=== PATIENT | female | born 1980 | race Caucasian/White ===

== ENCOUNTER → 2016-09-25 | Outpatient (CLI) | payer MEDICAID ==
[~2016-09-25] MED LIST: FLINT2 CHEW; IBUP-232 PO; SENN1TAB PO
== END ==
LOC: HPND 09:07
PROVIDERS: ATTEND Obstetrics & Gynecology Obstetrics
DX: O34.12 Maternal care for benign tumor of corpus uteri, second trimester (principal); O09.522 Supervision of elderly multigravida, second trimester; Z36 Encounter for antenatal screening of mother; Z3A.00 Weeks of gestation of pregnancy not specified
CPT/HCPCS: 76816

== ENCOUNTER → 2016-10-13 | Outpatient (CLI) | payer MEDICAID | LOC: HPND 10:59 | PROVIDERS: ATTEND Obstetrics & Gynecology | DX: O09.522 Supervision of elderly multigravida, second trimester (principal); O35.8XX0 Maternal care for other (suspected) fetal abnormality and damage, not applicable or unspecified; O34.12 Maternal care for benign tumor of corpus uteri, second trimester | CPT/HCPCS: 76825; 76827; 93325 ==

== ENCOUNTER → 2016-10-20 | Outpatient (CLI) | payer MEDICAID | LOC: HPND 08:36 | PROVIDERS: ATTEND Obstetrics & Gynecology | DX: O35.8XX2 Maternal care for other (suspected) fetal abnormality and damage, fetus 2 (principal); Z3A.27 27 weeks gestation of pregnancy | CPT/HCPCS: 76816 ==

== ENCOUNTER → 2016-10-27 | Outpatient (CLI) | payer MEDICAID | LOC: HPND 08:33 | PROVIDERS: ATTEND Obstetrics & Gynecology | DX: O35.8XX0 Maternal care for other (suspected) fetal abnormality and damage, not applicable or unspecified (principal); O09.523 Supervision of elderly multigravida, third trimester; Z3A.28 28 weeks gestation of pregnancy | CPT/HCPCS: 76815 ==

== ENCOUNTER → 2016-11-10 | Outpatient (CLI) | payer MEDICAID | LOC: HPND 08:06 | PROVIDERS: ATTEND Obstetrics & Gynecology | DX: O35.8XX0 Maternal care for other (suspected) fetal abnormality and damage, not applicable or unspecified (principal) | CPT/HCPCS: 76816 ==

== ENCOUNTER → 2016-11-24 | Outpatient (CLI) | payer MEDICAID | LOC: HPND 08:27 | PROVIDERS: ATTEND Obstetrics & Gynecology | DX: O35.1XX0 Maternal care for (suspected) chromosomal abnormality in fetus, not applicable or unspecified (principal) | CPT/HCPCS: 76815 ==

== ENCOUNTER → 2016-12-08 | Outpatient (CLI) | payer MEDICAID | LOC: HPND 08:24 | PROVIDERS: ATTEND Obstetrics & Gynecology | DX: O35.8XX0 Maternal care for other (suspected) fetal abnormality and damage, not applicable or unspecified (principal); O09.523 Supervision of elderly multigravida, third trimester; O34.13 Maternal care for benign tumor of corpus uteri, third trimester; Z3A.34 34 weeks gestation of pregnancy | CPT/HCPCS: 76816 ==

== ENCOUNTER → 2016-12-30 | Outpatient (CLI) | payer MEDICAID | LOC: HPND 08:39 | PROVIDERS: ATTEND Obstetrics & Gynecology | DX: O35.1XX0 Maternal care for (suspected) chromosomal abnormality in fetus, not applicable or unspecified (principal) | CPT/HCPCS: 76816 ==

== ENCOUNTER 2016-12-31 22:36 | Emergency (ER) | payer MEDICAID ==
[~2016-12-31 22:36] MED LIST changes: -IBUP-232 PO; -SENN1TAB PO
--- NOTE | 2016-12-31 23:43 | PD ---
HPI Travel History International Travel<30 Days: No Contact w/Intl Traveler<30Days: No Known Affected Area: No History of Present Illness HPI This patient is a 36-year-old 6 para 5005 EDC is January 13, 2017 presently at 38 weeks who thinks that her water broke at approximately 10 PM with subsequent on set of irregular contractions since 4 PM her group B strep is positive.Amnisure is negative x 2 care with [facility] Course is significant for left sided lung mass Advanced maternal age Grand multiparity History Past Medical History Narrative Medical Patient has no known drug allergies no major medical problems Obstetric History Obstetric History Normal spontaneous vaginal delivery 5 Past Surgical History Surgical History: No Previous Surgery Family History Family History: Negative Social History Alcohol Use: No Tobacco Use: No Substance Abuse: No Allergies-Medications (Allergen,Severity, Reaction): Coded Allergies: No Known Allergies (Unverified , 12/23/16) Home Meds Reported Medications Yehp-Gxulcgrk-Hejnheja (Flintstones Complete)60 Mg Tab1 Tab CHEW DAILY #30 TAB Ref 0 08/04/16 Review of Systems Gastrointestinal: Abdominal Pain (irregular contractions) Genitourinary: Other (possible rupture of membranes) Physical Exam Narrative GENERAL: Well-nourished, well-developed patient. Alert oriented 3 and cooperative in no acute distress SKIN: Warm and dry. HEAD: Normocephalic and atraumatic. CARDIOVASCULAR: Regular rate and rhythm without murmurs, gallops, or rubs. RESPIRATORY: Breath sounds equal bilaterally. No accessory muscle use ABDOMEN/GI: Abdomen soft, non-tender, bowel sounds present, no rebound, no guarding gravid consistent with stated gestational age occasional palpable contractions Gravid to [-] weeks size term size Fundal Height: [-] GENITOURINARY: External Genitalia: intact and normal in appearance BUS glands: [-] Cervix: [-] Posterior soft Dilatation: [-] 2 cm Effacement: [-] 50% Station: [-] -2 Presentation: [-] Vertex Membranes: [intact speculum exam shows no fluid in the vault no fluid from the os amnisure is negative 2 Uterine Contractions: [-] Irregular occasional FHT's: Category: [-] 1 Baseline: [-] 140 Reactive: [-] + Variability: [-] Moderate Decels: [-]0 no decelerations with contractions EXTREMITIES: No cyanosis or edema. 2+ reflexes NEUROLOGICAL: Awake and alert. Motor and sensory grossly within normal limits. Five out of 5 muscle strength in all muscle groups. Normal speech. Data Data Vital Signs Reviewed: Yes (121/44 temperature 98.3 pulse is 81) Labs Bedside ultrasound is done Amniotic fluid index is 18.30 Positive flexion Positive tone Positive breathing With a reactive tracing 10 out of 10 biophysical profile MDM Medical Record Reviewed: Yes Interpretation(s) 36-year-old at 38 weeks Clinical evidence of ruptured membrane Not in labor Russ Wall Advanced maternal age Grand multiparity Plan After external monitoring bedside ultrasound with a reactive tracing We'll discharge patient home kick counts She signs of labor and rupture of membranes reviewed She is to keep her next appointment with careful appointment Diagnosis Diagnosis: Primary Impression: 38 weeks gestation of Additional Impressions: Suspected problem with amniotic cavity and membrane not found Grand multiparity Advanced maternal age in multigravida Qualified Code: O09.523 - Advanced maternal age in multigravida, third trimester Russ Wall' contraction Disposition: 01 DISCHARGE HOME Condition: Stable Dacia Holder MD Dec 31, 2016 23:42
== END 2016-12-31 23:47 | disposition home or self-care (01) ==
LOC: HOBED 22:36
DX: O47.1 False labor at or after 37 completed weeks of gestation (principal); O09.523 Supervision of elderly multigravida, third trimester; Z3A.38 38 weeks gestation of pregnancy
CPT/HCPCS: 59025; 76815; 84112

== ENCOUNTER 2017-01-03 01:50 | Inpatient (IN) | payer MEDICAID ==
[2017-01-03] VITALS (25 sets, daily range): BP systolic 104–132; BP diastolic 56–70; PULSE 67–107; RESP 16–18; TEMP 97.7–98.5
[~2017-01-03] VITALS: Ht 154.9 cm; Wt 68.5 kg
[2017-01-03] MEDS: LACTATED RINGER'S 1000 ML INJ 1,000 ML IV SCH ×2 (02:14→06:34)
[2017-01-03] MEDS ORDERED: LACTATED RINGER'S 1000 ML INJ 1,000 ML IV PRN (02:14)
[2017-01-03] MEDS ORDERED: OXYTOCIN 30 UNITS-500ML PREMIX 500 ML IV ONE (02:15)
[2017-01-03] MEDS ORDERED: LIDOCAINE HCL 1% 50 ML VIAL I-DERMAL PRN (02:15)
[2017-01-03] MEDS ORDERED: LIDOCAINE HCL 1% 50 ML VIAL INFIL PRN (02:15)
[2017-01-03] MEDS ORDERED: PENICILLIN G POTASSIUM INJ 5,000,000 UNITS in SODIUM CHLORIDE 0.9% INJ 100 ML IV ONE (02:15)
[2017-01-03] MEDS ORDERED: SODIUM CHLORID 0.9% 500 ML INJ 500 ML IV PRN (02:15)
[2017-01-03] MEDS ORDERED: CITRIC ACID-SODIUM CITRATE LIQ 30 ML UDC PO SCH (02:15)
[2017-01-03] MEDS ORDERED: MINERAL OIL 10 ML VIAL TOPICAL PRN (02:15)
[2017-01-03] MEDS ORDERED: SODIUM CHLOR 0.9% 1000 ML INJ 1,000 ML IV PRN (02:34)
--- NOTE | 2017-01-03 02:38 | HHI.HP ---
History & Physical H&P Patient Name: Janelle Louis Unit Number: [id number] Date of : 1980 Patient Status: Registered Emergency Room Attending Doctor: Dacia Holder MD HPI HPI Chief Complaint concern for ROM, contractions Date Seen: Jan 03, 2017 Travel History International Travel<30 Days: No Contact w/Intl Traveler<30Days: No History of Present Illness HPI Ms. Louis is a 36-year-old 005 patient of [facility] at 38 3/7 weeks ( EDC 01/13/2017) who presents with concern for rupture of membranes as well as contractions. Patient states that she was eating dinner earlier tonight when she thought that she may have ruptured her membranes; patient states that she felt more fluid past from her vagina while driving back from dinner at approximately midnight. Patient also reports slight red/bloody tinged fluid. Patient reports increasing pain with contraction; contractions irregular. Patient does not report other symptoms at this time; no headaches, shortness of breath, chest pain, vomiting, or dysuria. Patient last seen 12/31 for possible ROM but Amnisure negative; cervical check at that time was 2/50%/-2, discharged home after reactive tracing. Per review of records, patient GBS positive. Patient denies complications. Early ultrasounds demonstrated CTA and with recommended follow-up after ; subsequent ultrasounds in 12/2016 did not show this. Review of labs did not reveal abnormalities. Para: 5 : 6 History (Limited) History Past Medical History Medical History: Denies Significant Hx Obstetric History Obstetric History 005 Largest weight 8 lbs. 12 oz. Past Surgical History Surgical History: No Previous Surgery Family History Family History: Negative Social History Alcohol Use: No Tobacco Use: No Substance Abuse: No Allergies-Medications Allergies-Medications (Allergen,Severity, Reaction): Coded Allergies: No Known Allergies (Unverified , 12/23/16) Home Meds Reported Medications Sdev-Hncjuflj-Rekdompj (Flintstones Complete)60 Mg Tab1 Tab CHEW DAILY #30 TAB Ref 0 08/04/16 ROS Review of Systems General / Constitutional: No: Fever, Chills Eyes: No: Blurred Vision HENT: No: Headaches Cardiovascular: No: Chest Pain or Discomfort Respiratory: No: Short of Breath Gastrointestinal: No: Nausea, Vomiting Genitourinary: Other (possible ROM) Physical Exam Physical Exam BP 132/69 HR 107 Narrative GENERAL: Well-nourished, well-developed patient. SKIN: Warm and dry. HEAD: Normocephalic and atraumatic. EYES: No scleral icterus. No injection or drainage. ENT: No nasal drainage noted. Mucous membranes pink. CARDIOVASCULAR: Regular rate and rhythm without murmurs, gallops, or rubs. RESPIRATORY: CTAB, normal rate ABDOMEN/GI: Abdomen soft, non-tender, bowel sounds present, no rebound, no guarding Gravid EXTREMITIES: No cyanosis or edema. NEUROLOGICAL: Awake and alert. Motor and sensory function grossly within normal limits. GENITOURINARY: Performed by Dr. Whitman/Dr. Alex External Genitalia: intact and normal in appearance. Clear fluid pooling in posterior fornix. No evidence of vaginal blood Cervix: Dilatation: 4 Effacement: 50% Station: -2 Presentation: V Membranes: Ruptured Uterine Contractions: Irregular FHT's: Category: 1 Baseline: 140 Reactive: Y Variability: Mod Decels: None Data Data Data Orders Ob (2e) Additional Admit Info (01/03/17 02:12) Admit To Inpatient (01/03/17 ) Vital Signs (Adult) .Per protocol (01/03/17 02:14) Heart (01/03/17 02:14) Amnioinfusion (01/03/17 02:14) Urinary Catheter Management .ONCE (01/03/17 02:14) Lactated Ringer's 1000 Ml Inj (Lr 1000 M (01/03/17 02:14) Lactated Ringer's 1000 Ml Inj (Lr 1000 M (01/03/17 02:14) Sodium Chlorid 0.9% 500 Ml Inj (Ns 500 M (01/03/17 02:15) Sodium Chlor 0.9% 1000 Ml Inj (Ns 1000 M (01/03/17 02:34) Lidocaine 1% Inj (50 Ml) (Xylocaine 1% I (01/03/17 02:15) Citric Acid-Sodium Citrate Liq (Bicitra (01/03/17 02:15) Fentanyl Inj (Fentanyl Inj) (01/03/17 02:15) Fentanyl Inj (Fentanyl Inj) (01/03/17 02:15) Penicillin G Potassium Inj (Pfizerpen-G (01/03/17 02:15) Penicillin G Potassium Inj (Pfizerpen-G (01/03/17 06:15) Complete Blood Count With Diff (01/03/17 02:14) Hold Clot (01/03/17 02:14) Abo/Rh Blood Type (01/03/17 02:14) Urinalysis - C+S If Indicated (01/03/17 02:14) Resp Oxygen Non Rebreathe Mask (01/03/17 ) ^ Epidural / Intrathecal Infus (01/03/17 02:14) Oxytocin 30 Units-500ml Premix (Pitocin (01/03/17 02:15) Lidocaine 1% Inj (50 Ml) (Xylocaine 1% I (01/03/17 02:15) Light Mineral Oil (Muri-Lube Oil) (01/03/17 02:15) Inpatient Certification (01/03/17 ) MDM MDM Medical Record Reviewed: Yes Narrative Course / MDM 36-year-old 005 patient of [facility] at 38 3/7 weeks (EDC 01/13/2017) -Concern for ROM -Cat 1 rhythm -Cervix 4/50%/-2 -Uterine irritability on CTG -GBS negative Plan: -Continue to monitor EFM -Will check Amnisure Interval: Amnisure + Plan: -We'll plan to admit patient for labor -Start IV fluids -PCN for GBS prophylaxis -We'll obtain CBC, hold clot, urinalysis -Epidural if desired (Triston Colin MD R2) H&P I rounded on the patient. I rounded with the resident. I reviewed the resident' s assessment and plan of care for this patient. I am in agreement with the plan of care for this patient. (Dacia Holder MD) Triston Colin MD R2 Jan 03, 2017 02:38 Dacia Holder MD Jan 03, 2017 06:22
[2017-01-03 03:06] LABS: AUTOMATED NEUTROPHIL # 9.3 TH/MM3 (1.8-7.7); BASOPHIL % 0.2 % (0.0-2.0); EOSINOPHIL # 0.1 TH/MM3 (0-0.4); EOSINOPHIL % 0.4 % (0.0-4.0); HEMATOCRIT 30.1 % (35.0-46.0); LYMPHOCYTE # 2.7 TH/MM3 (1.0-4.8); MEAN CELL VOLUME 75.5 FL (80.0-100.0); MEAN CORPUSCULAR HEMOGLOBIN 23.8 PG (27.0-34.0); MEAN CORPUSCULAR HGB CONC 31.5 % (32.0-36.0); MONO % 6.8 % (0.0-8.0); NEUT % 71.6 % (16.0-70.0); PLATELET COUNT 268 TH/MM3 (150-450); RED BLOOD COUNT 3.99 MIL/MM3 (4.00-5.30); RED CELL DISTRIBUTION WIDTH 14.7 % (11.6-17.2)
[2017-01-03 03:08] LABS: HEMO FLAGS AUTO DIFF
[2017-01-03 03:25] LABS: BLOOD, URINE SMALL (NEG); COMMENT (UR) CULT NOT INDICATED; CULTURE IF INDICATED CULT NOT INDICATED; GLUCOSE,URINE NEG (NEG); KETONE, URINE NEG (NEG); NITRITE,URINE NEG (NEG); PH, URINE 7.5 (5.0-8.5); URINE COLOR LIGHT-YELLOW (YELLW/STRAW)
[2017-01-03 03:54] LABS: PLATELET ESTIMATE SMEAR NORMAL (NORMAL); PLATELET MORPHOLOGY NORMAL (NORMAL); SCAN/DIFF AUTO DIFF CONFIRMED
[2017-01-03] MEDS ORDERED: PENICILLIN G POTASSIUM INJ 2,500,000 UNITS in SODIUM CHLORIDE 0.9% INJ 100 ML IV SCH (06:15)
[2017-01-03] MEDS ORDERED: OXYTOCIN 30 UNITS-500ML PREMIX 500 ML IV SCH (06:30)
--- NOTE | 2017-01-03 07:00 | PD.LABORPN ---
Subjective Subjective Patient doing well overall. Completed one bag of PCN for GBS prophylaxis. On pitocin. Sitting on ball then standing and swaying from cmqt-pw-kpec. Feeling contractions. Objective Vital Signs Vital Signs Date Time Temp Pulse Resp B/P Pulse Ox O2 Delivery O2 Flow Rate FiO2 01/03/17 06:30 98.0 01/03/17 06:23 18 01/03/17 06:18 102 126/70 01/03/17 05:40 98 01/03/17 05:35 86 01/03/17 05:33 18 01/03/17 05:31 74 120/59 01/03/17 05:30 80 01/03/17 04:55 18 01/03/17 04:00 98.0 01/03/17 03:59 93 120/56 01/03/17 03:58 18 01/03/17 03:00 18 01/03/17 02:59 103 128/64 01/03/17 02:15 18 01/03/17 02:11 107 132/69 Objective Pelvic Exam: Deferring vaginal exam until contractions occur more regularly Uterine Contractions: irregular, sometimes every 1-3 minutes FHT's: Category: II Baseline: 140-145 Reactive: Yes, up to 160 Variability: Moderate Decels: Variables Assessment/Plan Assessment and Plan 36-year-old patient of [facility] at 38 3/7 weeks (EDC 01/13/2017), GBS positive -Category II tracing -On pitocin -Continue 2nd penicillin dose -Continue monitoring -Pt does not desire epidural -Expect vaginal delivery EkoKathi MD R1 Jan 03, 2017 07:00
[2017-01-03] MEDS ORDERED: ALUMINUM/MAGNESIUM/SIMETH 30 ML CUP PO PRN (07:15)
[2017-01-03] MEDS ORDERED: IBUPROFEN 600 MG TAB PO PRN (07:15)
[2017-01-03] MEDS ORDERED: ACETAMINOPHEN 325 MG TAB PO PRN (07:15)
[2017-01-03] MEDS ORDERED: ONDANSETRON ODT 4 MG TAB PO PRN (07:15)
[2017-01-03] MEDS ORDERED: BENZOCAINE 20% TOPICAL SPRAY 60 ML CAN TOPICAL PRN (07:15)
[2017-01-03] MEDS ORDERED: ZOLPIDEM TARTRATE 5 MG TAB PO PRN (07:15)
[2017-01-03] MEDS ORDERED: DOCUSATE SODIUM 50 MG/SENNA 8.6 MG TAB PO PRN (07:15)
[2017-01-03] MEDS ORDERED: WITCH HAZEL 50%/GLYCERIN 12.5% 40 PAD JAR TOPICAL PRN (07:15)
[2017-01-03] MEDS ORDERED: SODIUM CHLORIDE 0.9% FLUSH 10 ML FLUSH IV FLUSH PRN (07:15)
--- NOTE | 2017-01-03 07:22 | PD.OB.DELI ---
Delivery Date: Jan 03, 2017 Anesthesia: None Episiotomy: None Vaginal Delivery: Normal Presentation: Occiput anterior Nuchal Cord: None Delayed cord clamping (45 sec): Yes Infant: Female One Minute : 9 Five Minute : 9 Weight: 2755 Placenta: Spontaneous delivery, Intact, 3 vessel cord Laceration: 1 deg Additional Information This 36-year-old 6 now para 6 at 38 weeks gestation who presented with premature rupture of membranes progressed in labor she was augmented very briefly with Pitocin she rapidly progressed to completely dilated completely effaced delivered over an intact perineum a viable female weight 2755 g Apgars of 9 at 1 minute and 9 at 5 minutes Placenta delivered spontaneously and intact She sustained a small primary vaginal laceration of the perineum that was not bleeding and no repair was done Ice packs placed on the perineum Estimated blood loss less than 300 cc Uterus is firm no active bleeding Baby stable mother stable Timeout was done and patient's questions were answered Dacia Holder MD Jan 03, 2017 07:22
[2017-01-03] MEDS ORDERED: SODIUM CHLORIDE 0.9% FLUSH 10 ML FLUSH IV FLUSH SCH (09:00)
[2017-01-03] MEDS ORDERED: DIPHTH/TETANUS/ACEL PERTUSSIS (BOOSTER) 0.5 ML VIAL/PFS IM ONE (16:00)
[2017-01-03] MEDS ORDERED: MEASLES, MUMPS, RUBELLA VACCINE 0.5 ML VIAL SQ ONE (16:00)
--- NOTE | 2017-01-04 07:21 | HHI.OB ---
Subjective Post Day: 1 Remarks day #1. AFVSS overnight. Pain minimal. Decreased lochia. Denies dysuria. No breast tenderness. She is feeding the baby via formula. Appetite good. No nausea or vomiting. Endorses flatus. No bowel movement. Ambulating well. Denies calf pain, shortness of breath, or cough. Otherwise, she is doing well this morning and has no other complaints. She is wondering about going home later today. (Sigifredo Henriquez MD R1) Remarks Patient seen and evaluated with resident under direct supervision, agree with assessment and plan. (Hiren Vázquez MD) Objective Vitals/I&O Vital Signs Date Time Temp Pulse Resp B/P Pulse Ox O2 Delivery O2 Flow Rate FiO2 01/03/17 20:00 98.5 68 18 104/63 01/03/17 09:30 98.1 77 16 112/67 01/03/17 08:31 73 116/67 01/03/17 08:15 94 119/70 01/03/17 08:11 18 01/03/17 08:01 67 108/62 01/03/17 07:31 68 116/69 01/03/17 07:27 97.7 17 Objective Remarks GENERAL: Well-nourished, well-developed patient. CARDIOVASCULAR: Regular rate and rhythm without murmurs, gallops, or rubs. RESPIRATORY: Breath sounds equal bilaterally. No accessory muscle use. ABDOMEN/GI: Abdomen soft, non-tender. Fundus: Firm, non-tender at umbilicus. GENITOURINARY: Light to moderate bleeding. EXTREMITIES: No cyanosis or edema, non-tender, without signs of DVT. Medications and IVs Current Medications Medications (Trade) Dose Ordered Sig/Letty Route Start Time Stop Time Status Last Admin (NS Flush) 2 ml BID IV FLUSH 01/03/17 09:00 (NS Flush) 2 ml UNSCH PRN IV FLUSH 01/03/17 07:15 (Tylenol) 650 mg Q4H PRN PO 01/03/17 07:15 (Motrin) 600 mg Q6H PRN PO 01/03/17 07:15 01/03/17 07:41 (Americaine 20% Top Spr) 1 spray Q4H PRN TOPICAL 01/03/17 07:15 (Tucks Pads) 1 applic QID PRN TOPICAL 01/03/17 07:15 (Susan-Colace) 2 tab Q12H PRN PO 01/03/17 07:15 (Ambien) 5 mg HS PRN PO 01/03/17 07:15 (Mag-Al Plus Susp Liq) 15 ml Q8H PRN PO 01/03/17 07:15 (Zofran Odt) 4 mg Q6H PRN PO 01/03/17 07:15 (Sigifredo Henriquez MD R1) Assessment/Plan Assessment and Plan 36 y/o who is PPD# 1 s/p . -Continue routine care. -Percocet and Motrin PRN pain. -Encouraged OOB. Advised pelvic rest for 6 wks. -Will need a f/u appt. within 6 wks. -Re: ctrl, she is undecided -D/c today/tomorrow wdw OB attending (Sigifredo Henriquez MD R1) Sigifredo Henriquez MD R1 January 04, 2017 07:21 Hiren Vázquez MD January 04, 2017 07:53
[2017-01-04 08:05] VITALS: BP 120/71; PULSE 68; RESP 18; TEMP 98.2
[2017-01-04 19:44] VITALS: BP 104/51; PULSE 69; RESP 15; TEMP 98.6
--- NOTE | 2017-01-05 07:26 | HHI.DCPOC ---
Discharge Care Plan Diagnosis: (1) care and examination Report Symptoms to Your Doctor -Temperate above 100.5 degrees -Unusual pain or calf pain -Increased vaginal bleeding -Painful or difficulty urinating -Feelings of extreme sadness or anxiety after 2 weeks Goals to Promote Your Health * To prevent worsening of your condition and complications * To maintain your health at the optimal level Directions to Meet Your Goals Take your medications as prescribed Follow your dietary instruction Follow activity as directed Ensure plenty of rest for recovery Drink fluids for hydration Keep your appointments as scheduled Take your immunizations and boosters as scheduled If your symptoms worsen call your PCP, if no PCP go to Urgent Care Center or Emergency Room Smoking is Dangerous to Your Health. Avoid second hand smoke Call the 24-hour crisis hotline for domestic abuse at Triston Colin MD R2 January 05, 2017 07:26
[2017-01-05] MEDS ORDERED: SENN1TAB PO (07:27)
[2017-01-05] MEDS ORDERED: IBUP-232 PO (07:27)
--- NOTE | 2017-01-05 07:29 | HHI.OB ---
Subjective Post Day: 2 Remarks Ms. Louis is a 36 yo who is PPD 2 from (01/03 at 0703). AFVSS overnight. Patient states that she is doing well this time. Patient reports minimal pain that she has not had to use Motrin/Percocet. Decreased lochia. Denies dysuria. Patient is feeding the baby via formula. Appetite good. No nausea or vomiting. Endorses flatus. Ambulating well. Denies calf pain, shortness of breath. Patient states she has/plans to set up 6 week follow-up appointment. (Triston Colin MD R2) Objective Vitals/I&O Vital Signs Date Time Temp Pulse Resp B/P Pulse Ox O2 Delivery O2 Flow Rate FiO2 01/04/17 19:44 98.6 69 15 104/51 01/04/17 08:05 98.2 68 18 120/71 Objective Remarks GENERAL: Well-nourished, well-developed patient. CARDIOVASCULAR: Regular rate and rhythm without murmurs, gallops, or rubs. RESPIRATORY: CTAB, normal rate ABDOMEN/GI: Abdomen soft, non-tender. Fundus: Firm, non-tender at umbilicus. GENITOURINARY: Light to moderate bleeding. EXTREMITIES: No cyanosis or edema, non-tender, without signs of DVT. Medications and IVs Current Medications Medications (Trade) Dose Ordered Sig/Letty Route Start Time Stop Time Status Last Admin (NS Flush) 2 ml BID IV FLUSH 01/03/17 09:00 (NS Flush) 2 ml UNSCH PRN IV FLUSH 01/03/17 07:15 (Tylenol) 650 mg Q4H PRN PO 01/03/17 07:15 (Motrin) 600 mg Q6H PRN PO 01/03/17 07:15 01/03/17 07:41 (Americaine 20% Top Spr) 1 spray Q4H PRN TOPICAL 01/03/17 07:15 (Tucks Pads) 1 applic QID PRN TOPICAL 01/03/17 07:15 (Susan-Colace) 2 tab Q12H PRN PO 01/03/17 07:15 (Ambien) 5 mg HS PRN PO 01/03/17 07:15 (Mag-Al Plus Susp Liq) 15 ml Q8H PRN PO 01/03/17 07:15 (Zofran Odt) 4 mg Q6H PRN PO 01/03/17 07:15 (Triston Colin MD R2) Assessment/Plan Problem List: (1) care and examination Assessment and Plan 36 y/o who is PPD# 2 s/p . Continue routine care. -Percocet and Motrin PRN pain. -Continue to monitor vital signs; vaginal bleeding -Encouraged OOB. Advised pelvic rest for 6 wks. -Formula feeding - checkup in 6 wks. -Re: ctrl, she is undecided Discharge Planning -Anticipate discharge today (Triston Colin MD R2) Attending Attestation The exam, history, and the medical decision-making described in the above note were completed with the assistance of the resident provider. I reviewed and agree with the findings presented. I attest that I had a [id number] encounter with the patient on the same day, and personally performed and documented my assessment and findings in the medical record. (Cayden Weinberg MD) Triston Colin MD R2 January 05, 2017 07:29 Cayden Weinberg MD January 05, 2017 10:12
[2017-01-05 07:30] VITALS: BP 112/71; PULSE 73; RESP 18; TEMP 98.1
== END 2017-01-05 11:00 | disposition home or self-care (01) | DRG 775 ==
LOC: HOBED 01:50 → H2EB 02:13 → H1EA 09:01
PROVIDERS: ADMIT Obstetrics & Gynecology; ATTEND Obstetrics & Gynecology
PROC: 10E0XZZ Delivery of Products of Conception, External Approach (ICD-10-PCS; principal; 2017-01-03)
PROC: 0HQ9XZZ Repair Perineum Skin, External Approach (ICD-10-PCS; 2017-01-03)
DX: O99.824 Streptococcus B carrier state complicating childbirth (principal); O09.523 Supervision of elderly multigravida, third trimester; Z3A.38 38 weeks gestation of pregnancy; O70.0 First degree perineal laceration during delivery; Z37.0 Single live birth
CPT/HCPCS: 59025; 81001; 84112; 85025; 86900; 86901; J2540; J2590; J7120